=== PATIENT | male | born 1995 | race Caucasian/White ===

== ENCOUNTER 2017-02-17 23:01 | Emergency (ER) | payer SELFPAY ==
[~2017-02-17] VITALS: Ht 175.3 cm; Wt 113.5 kg
[2017-02-17 23:07] VITALS: Ht 175.3 cm; Wt 113.5 kg
== END 2017-02-18 03:40 | disposition left against medical advice (07) ==
LOC: E/R 23:01
DX: Z53.21 Procedure and treatment not carried out due to patient leaving prior to being seen by health care provider (principal)